=== PATIENT | female | born 1990 | race Hispanic/Latino ===

== ENCOUNTER 2025-06-06 15:37 | Emergency (ER) | payer OTHER ==
[~2025-06-06] VITALS: Ht 162.6 cm; Wt 75.9 kg
[2025-06-06 15:41] VITALS: BP 117/63; TEMP 97.2; O2SAT 99
[2025-06-06] MEDS ORDERED: CEFD1CAP9 PO (17:07)
== END 2025-06-06 17:13 | disposition home or self-care (01) ==
LOC: M ED 15:37
DX: J06.9 Acute upper respiratory infection, unspecified (principal)